=== PATIENT | male | born 1985 | race Caucasian/White ===

== ENCOUNTER 2016-08-17 23:23 | Emergency (ER) | payer OTHER ==
[~2016-08-17] VITALS: Ht 172.7 cm; Wt 84.0 kg
[~2016-08-17 23:23] MED LIST: IBUP800T PO; OXYC-302 PO
[2016-08-17 23:26] VITALS: BP 136/80
[2016-08-18] MEDS ORDERED: SODIUM CHLORIDE 0.9% 1,000ML IVBOLUS ONE
[2016-08-18] MEDS ORDERED: MAALOX/HYOSCYAMINE/LIDOCAINE 45 ML BOTTLE PO ONE
[2016-08-18] MEDS ORDERED: SODIUM CHLORIDE FLUSH 10ML SYR IVF ONE
[2016-08-18] MEDS ORDERED: MAALOX/HYOSCYAMINE/LIDOCAINE 45 ML BOTTLE ONE (00:16)
[2016-08-18 00:18] LABS: ASPARTATE AMINO TRANSFERASE 24 U/L (15-37); BLOOD UREA NITROGEN 11 mg/dL (7-18)
[2016-08-18] MEDS ORDERED: KETOROLAC 30 MG/1 ML IVPush ONE (01:30)
[2016-08-18] MEDS ORDERED: MORPHINE SULFATE 4 MG/ML, 1ML IVPush ONE (01:30)
[2016-08-18] MEDS ORDERED: MORPHINE SULFATE 4 MG/ML, 1ML ONE (01:45)
[2016-08-18] MEDS ORDERED: KETOROLAC 30 MG/1 ML ONE (01:45)
== END 2016-08-18 02:12 | disposition home or self-care (01) ==
LOC: ED 23:59
DX: R10.84 Generalized abdominal pain (principal)
CPT/HCPCS: 36415; 80053; 81003; 83690; 85025; 96361; 96374; 96375; 99285; J1885; J7030

== ENCOUNTER 2019-03-05 09:53 | Emergency (ER) | payer OTHER ==
[~2019-03-05] VITALS: Ht 182.9 cm; Wt 86.7 kg
[~2019-03-05 09:53] MED LIST changes: +IBUP-1223 PO; -IBUP800T PO
[2019-03-05 11:31] LABS: BASOPHILS # (AUTO) 0.04 x10^3/uL (0-0.1); BASOPHILS % (AUTO) 1 % (0-1); EOSINOPHILS % (AUTO) 3 % (1-7); LYMPHOCYTES # (AUTO) 2.15 x10^3/uL (1-3.4); LYMPHOCYTES % (AUTO) 30 % (22-44); MD NO; MEAN CORPUSCULAR HGB CONC 33.7 g/dL (33.2-36.2); MEAN CORPUSCULAR VOLUME 82.8 fL (81-97); MEAN PLATELET VOLUME 7.9 fL (7.4-10.4); MONOCYTES # (AUTO) 0.59 x10^3/uL (0.2-0.8); MONOCYTES % (AUTO) 8 % (2-9); NEUTROPHILS # (AUTO) 4.17 x10^3/uL (1.8-6.8); NEUTROPHILS % (AUTO) 58 % (42-75); PLATELET COUNT 269 x10^3/uL (130-400); RED BLOOD COUNT 5.94 x10^6/uL (4.38-5.82); RED CELL DISTRIBUTION WIDTH 13.6 % (9.4-14.8)
[2019-03-05 11:41] LABS: ALBUMIN 4.1 g/dL (3.4-5.0); ANION GAP 4 mmol/L (5-15); CALCIUM 8.4 mg/dL (8.5-10.1); CHLORIDE 110 mmol/L (98-107)
[2019-03-05 11:45] LABS: ALANINE AMINOTRANSFERASE 49 U/L (12-78); ALKALINE PHOSPHATASE 73 U/L (45-117); BILIRUBIN,TOTAL 0.7 mg/dL (0.2-1.0); CREATININE 0.98 mg/dL (0.7-1.3); TOTAL PROTEIN 7.5 g/dL (6.4-8.2)
--- NOTE | 2019-03-05 12:25 | NUR ---
THIS IS A 33 YO M W/ C/O CRAIN X1 MONTH. WORSE TODAY. C/O NAUSEA AND SENSITIVITY TO LIGHT. PATIENTS RESPIRATIONS ARE EVEN AND UNLABORED. PATIENT IS IN NO ACUTE DISTRESS. PATIENT IS RESTING ON GURNEY AWAITING ED PROVIDER EVAL. DENIES FURTHER NEEDS AT THIS TIME.
--- NOTE | 2019-03-05 12:30 | NUR ---
PATIENT AMBULATED TO THE BATHROOM WITH A STEADY GAIT. URINE COLLECTED AND SENT TO LAB.
--- NOTE | 2019-03-05 12:40 | NUR ---
PROVIDER AT BEDSIDE.
[2019-03-05] MEDS ORDERED: METOCLOPRAMIDE 10MG TABLET ONE (12:45)
[2019-03-05] MEDS ORDERED: DIPHENHYDRAMINE 25 MG CAPSULE ONE (12:46)
[2019-03-05] MEDS ORDERED: KETOROLAC 60 MG/2 ML ONE (12:46)
--- NOTE | 2019-03-05 12:55 | NUR ---
PATIENT MEDICATED PER EMAR.
[2019-03-05 12:59] LABS: MICROSCOPIC NOT IND
[2019-03-05] MEDS ORDERED: DIPHENHYDRAMINE 25 MG CAPSULE PO ONE (13:00)
[2019-03-05] MEDS ORDERED: METOCLOPRAMIDE 10MG TABLET PO ONE (13:00)
[2019-03-05] MEDS ORDERED: KETOROLAC 60 MG/2 ML IM ONE (13:00)
[2019-03-05 14:27] VITALS: BP 106/68
== END 2019-03-05 14:29 | disposition home or self-care (01) ==
LOC: ED 14:00
DX: G44.52 New daily persistent headache (NDPH) (principal); Z87.891 Personal history of nicotine dependence
CPT/HCPCS: 36415; 70450; 80053; 81003; 85025; 96372; 99284; J1885; Q0163